=== PATIENT | male | born 1975 | race Hispanic/Latino ===

== ENCOUNTER 2019-11-29 06:54 | Emergency (ER) | payer BC ==
--- NOTE | 2019-11-29 08:04 | ULT ---
Exam: Testicular ultrasound HISTORY: Right testicular pain, intermittent for many years COMPARISON: None TECHNIQUE: Sagittal and transverse imaging of the left and right hemiscrotum are performed. Testicula r Doppler is performed with grayscale, color-flow, Doppler imaging and spectral waveform analysis. FINDINGS: Right hemiscrotum: Testicle: Homogeneous echotexture. No intratesticular masses. Right testicle measurements: 4.2 x 2.5 x 2.5 Right epididymis: Normal echotexture. Right epididymis measurements: 1.3 x 0.6 x 0.8 cm Hydrocele: Small hydrocele Left hemiscrotum: Left testicle: Homogeneous echotexture. No intratesticular masses. Left testicle measurements: 3.6 x 2.7 x 2.5 cm Left epididymis: Normal echotexture. Left epididymis measurements:1.1 x 0.6 x 0.6 cm Hydrocele: Small hydrocele Testicular Doppler: There is symmetric vascular flow to the left and right testicle. IMPRESSION: Small bilateral hydroceles
[2019-11-29 08:54] LABS: Bilirubin Negative (Negative); Blood, Urine Negative (Negative); Clarity Clear (Clear); Glucose, Urine (Dipstick) Normal (Negative); Leukocyte Negative Leu/uL (Negative); Nitrite Negative (Negative); Protein, Urine (Dipstick) Negative (Neg-Trace); Urobilinogen Normal mg/dL (Less than 2)
[2019-12-02 15:28] LABS: Chlam.trachomatis by PCR,Urine Not Detected (NotDetected)
== END 2019-11-29 10:25 | disposition home or self-care (01) ==
LOC: ERS 06:54
DX: N43.3 Hydrocele, unspecified (principal)
CPT/HCPCS: 76870; 81003; 87491; 87591; 93976